=== PATIENT | female | born 1950 | race Caucasian/White ===

== ENCOUNTER 2017-06-07 22:59 | Emergency (ER) | payer OTHER ==
[~2017-06-07] VITALS: Ht 167.6 cm; Wt 77.1 kg
[~2017-06-07 22:59] MED LIST: CITRATE OF MAG296 ML PO; COLACE100 MG PO; NORVASC 5 MG TAB5 MG PO; ONE DAILY HEAL1 EACH PO; SORIATANE10 MG PO; ULTRAVATE50 GM TP; VITAMINC500 PO; ZOFRAN ODT4 MG PO
[2017-06-07] MEDS ORDERED: FOSAMAX 70 MG T70 MG PO (23:17)
[2017-06-08 00:41] LABS: HEMATOCRIT 42.4 % (37.0-47.0); HEMOGLOBIN 14.6 gm/dL (12.0-15.0); MCH 29.2 pg (26.0-34.0); MCHC 34.5 g/dL (28.0-37.0); MCV 84.6 fL (80.0-100.0); PLATELET COUNT 233 thou/uL (150-400); RBC 5.01 mil/uL (4.20-5.00); RDW 13.6 % (10.5-14.5); WBC 12.9 thou/uL (4.0-11.0)
[2017-06-08 00:46] LABS: MANUAL DIFF YES
[2017-06-08 00:57] LABS: ANION GAP 9 mmol/L (7-16); BUN 28 mg/dL (7-18); CALCIUM 9.8 mg/dL (8.5-10.1); CHLORIDE 104 mmol/L (98-107); CO2 27 mmol/L (21-32); CREATININE 1.2 mg/dL (0.6-1.0); GLUCOSE 133 mg/dL (74-106); SODIUM 140 mmol/L (136-145)
[2017-06-08 01:02] LABS: ALKALINE PHOSPHATASE 78 U/L (46-116); DIRECT BILIRUBIN < 0.1 mg/dL (<0.1-0.3); SGOT 18 U/L (15-37); SGPT 25 U/L (30-65); TOTAL BILIRUBIN 0.4 mg/dL (<0.1-1.0); TOTAL PROTEIN 7.5 g/dL (6.4-8.2)
[2017-06-08 02:59] LABS: ABSOLUTE NEUTROPHILS 12.6 thou/uL (1.4-8.2); TOTAL CELL COUNT 100
[2017-06-08] MEDS ORDERED: NORCO 5-325 TA1 EACH PO (03:19)
[2017-06-08] MEDS ORDERED: ZOFRAN ODT4 MG PO (03:19)
[2017-06-08 03:34] VITALS: BP 133/92
== END 2017-06-08 03:36 | disposition home or self-care (01) ==
LOC: ER 22:59
PROVIDERS: Emergency Medicine
DX: K56.60 Unspecified intestinal obstruction (principal); F10.99 Alcohol use, unspecified with unspecified alcohol-induced disorder; I10 Essential (primary) hypertension; L40.9 Psoriasis, unspecified; G62.9 Polyneuropathy, unspecified; Z88.8 Allergy status to other drugs, medicaments and biological substances; Z85.3 Personal history of malignant neoplasm of breast

== ENCOUNTER → 2018-12-11 | Outpatient (CLI) | payer OTHER ==
[~2018-12-11] MED LIST changes: +FOSAMAX 70 MG T70 MG PO; +NORCO 5-325 TA1 EACH PO
== END ==
LOC: MRI 10:19
DX: M25.511 Pain in right shoulder (principal); G89.29 Other chronic pain

== ENCOUNTER → 2019-12-01 | Outpatient (CLI) | payer OTHER | LOC: NUC 10:21 | DX: M85.80 Other specified disorders of bone density and structure, unspecified site (principal); Z78.0 Asymptomatic menopausal state ==

== ENCOUNTER → 2020-08-16 | Outpatient (CLI) | payer OTHER | LOC: LAB 13:32 | PROVIDERS: ATTEND Family Medicine | DX: Z20.828 Contact with and (suspected) exposure to other viral communicable diseases (principal) ==